=== PATIENT | male | born 1970 | race African-American/Black ===

== ENCOUNTER 2017-02-05 10:26 | Emergency (ER) | payer BC ==
--- NOTE | 2017-02-05 10:47 | EDM.PDOC ---
ED HPI GENERAL MEDICAL PROBLEM - General Chief Complaint: Upper Extremity Injury/Pain Stated Complaint: NECK/SHOULDER Time Seen by Provider: 02/05/17 10:36 Source of Information: Reports: Patient History Limitations: Reports: No Limitations - History of Present Illness INITIAL COMMENTS - FREE TEXT/NARRATIVE: HISTORY AND PHYSICAL: History of present illness: [Patient comes to the emergency room for evaluation of neck, left shoulder and left elbow pain. States that he fell off a 4 foot step ladder while he was working at home yesterday, landing on his left shoulder and his mid back. He experienced immediate pain to those areas that they would get better with ice and rest. He woke up this morning with worsening pain and stiffness. Reports a history of C4 surgery. No weakness to upper extremities. Denies numbness and tingling. No chest pain, SOA or difficulty breathing. ] Review of systems: As per history of present illness and below otherwise all systems reviewed and negative. Past medical history: As per history of present illness and as reviewed below otherwise noncontributory. Surgical history: As per history of present illness and as reviewed below otherwise noncontributory. Social history: No reported history of drug or alcohol abuse. Family history: As per history of present illness and as reviewed below otherwise noncontributory. Physical exam: HEENT: Atraumatic, normocephalic. No areas of scalp tenderness. No tenderness over c-spine. Negative axial loading. Lungs: Clear to auscultation, breath sounds equal bilaterally. Heart: S1S2, regular rate and rhythm. Extremities: Atraumatic in appearance. Tender with palpation of L shoulder and trapezius. Tender w/ palpation over the L elbow and forearm. Diminished ROM through the wrist, elbow and shoulder due to pain. Hand fisher terrapin strength is diminshed on the left due to pain. Neurovascular unremarkable. Neuro: Awake, alert, oriented. Motor and sensory unremarkable throughout. Exam nonfocal. Diagnostics: [c-spine xray, L elbow xray, L shoulder xray, L forearm xray] Therapeutics: [Toradol 60mg IM, Norflex 60mg IV] Impression: [L arm pain] Plan: [Discussed with patient that his xrays are normal, and show no abnormality. Recommend gentle ROM stretches, heat/ice, and follow up with a local PCP. He states that he is not allergic to acetaminophen only codeine. He is given Toradol and NOrflex in the ER, and recommended to alternate Tylenol w/ ibuprofen. Follow dosing guidelines on the bottles. He is in agreement w/ today' s plan. ] Definitive disposition and diagnosis as appropriate pending reevaluation and review of above. Left Elbow Pain Score (Numeric/FACES): 8 Left Shoulder Pain Score (Numeric/FACES): 6 Neck Pain Score (Numeric/FACES): 4 - Related Data Allergies Allergy/AdvReac Type Severity Reaction Status Date / Time acetaminophen Allergy Hives Verified 02/05/17 10:39 [From Tylenol-Codeine #3] codeine Allergy Hives Verified 02/05/17 10:39 [From Tylenol-Codeine #3] cyclobenzaprine AdvReac Dizziness Verified 02/05/17 10:39 [From Flexeril] gabapentin [From Neurontin] AdvReac Vomiting Verified 02/05/17 10:39 methocarbamol [From Robaxin] AdvReac Vomiting Verified 02/05/17 10:39 tramadol AdvReac Vomiting Verified 02/05/17 10:39 Home Meds: Home Meds . [No Known Home Meds] 02/05/17 [History] Review of Systems - Review of Systems Review Of Systems: ROS reveals no pertinent complaints other than HPI. Trauma Exam - Physical Exam Exam: See Below Course - Vital Signs Last Recorded V/S: Last Vital Signs Temp 98 F 02/05/17 12:46 Pulse 62 02/05/17 12:46 Resp 16 02/05/17 12:46 BP 136/76 02/05/17 12:46 Pulse Ox 98 02/05/17 12:46 - Orders/Labs/Meds Orders: Active Orders 24 hr Category Date Time Status C-Spine [Cervical Spine 2V or 3V] [CR] Stat Exams 02/05/17 10:50 Taken Elbow Min 3V Lt [CR] Stat Exams 02/05/17 10:37 Taken Forearm 2V Lt [CR] Stat Exams 02/05/17 11:57 Taken Shoulder Comp Lt [CR] Stat Exams 02/05/17 10:38 Taken Meds: Medications Discontinued Medications Generic Name Dose Route Start Last Admin Trade Name Freq PRN Reason Stop Dose Admin Ketorolac Tromethamine 60 mg 02/05/17 12:26 Toradol IM 05/14/17 12:27 ONETIME ONE Orphenadrine Citrate 60 mg 02/05/17 12:30 Norflex IM Q12H CHARLEI Departure - Departure Time of Disposition: 12:30 Disposition: Home, Self-Care 01 Condition: good Clinical Impression: Left arm pain - Discharge Information Instructions: Shoulder Pain Referrals: PCP,None [Primary Care Provider] - Forms: ED Department Discharge Additional Instructions: The following information is given to patients seen in the emergency department who are being discharged to home. This information is to outline your options for follow-up care. We provide all patients seen in our emergency department with a follow-up referral. The need for follow-up, as well as the timing and circumstances, are variable depending upon the specifics of your emergency department visit. If you don't have a primary care physician on staff, we will provide you with a referral. We always advise you to contact your personal physician following an emergency department visit to inform them of the circumstance of the visit and for follow-up with them and/or the need for any referrals to a consulting specialist. The emergency department will also refer you to a specialist when appropriate. This referral assures that you have the opportunity for follow-up care with a specialist. All of these measure are taken in an effort to provide you with optimal care, which includes your follow-up. Under all circumstances we always encourage you to contact your private physician who remains a resource for coordinating your care. When calling for follow-up care, please make the office aware that this follow-up is from your recent emergency room visit. If for any reason you are refused follow-up, please contact the [facility] emergency department at and asked to speak to the emergency department charge nurse. [facility] [address] [place] [id number] Followup with her local primary care provider at the clinic listed above in 48- 72 hours. You can alternate Tylenol and ibuprofen every 4-6 hours as needed for discomfort. Return to ER as needed as discussed. - My Orders Last 24 Hours: My Active Orders 02/05/17 10:37 Elbow Min 3V Lt [CR] Stat 02/05/17 10:38 Shoulder Comp Lt [CR] Stat 02/05/17 10:50 C-Spine [Cervical Spine 2V or 3V] [CR] Stat 02/05/17 11:57 Forearm 2V Lt [CR] Stat - Assessment/Plan Last 24 Hours: My Active Orders 02/05/17 10:37 Elbow Min 3V Lt [CR] Stat 02/05/17 10:38 Shoulder Comp Lt [CR] Stat 02/05/17 10:50 C-Spine [Cervical Spine 2V or 3V] [CR] Stat 02/05/17 11:57 Forearm 2V Lt [CR] Stat
[2017-02-05] MEDS ORDERED: Ketorolac 60 MG/2 ML SDV IM ONE (12:26)
--- NOTE | 2017-02-06 17:36 | CR ---
EXAM DATE: 02/05/17 PATIENT'S AGE: 46 Patient: SAI ZAMAN Facility: [place], [place] Site . Site : 1970 Study: XRay Shoulder Left [id number]/14/2017 11:02:24 AM Ordering Physician: Doctor Cifuentes Final Report: HISTORY: Fall. TECHNIQUE: Two views of the left shoulder. COMPARISON: No prior. FINDINGS: There is no acute fracture or dislocation. Glenohumeral joint space maintained. AC joint intact. Type 2 acromial morphology. No abnormality within the visualized left lung. IMPRESSION: No acute fracture or dislocation. Dictated by MD @ 02/05/2017 11:16:49 AM Dictated by: Thomas Iverson MD @ 02/05/2017 11:16:55 (Electronic Signature) Report Signed by Proxy. TORIE
--- NOTE | 2017-02-06 17:37 | CR ---
EXAM DATE: 02/05/17 PATIENT'S AGE: 46 Patient: SAI ZAMAN Facility: [place], [place] Site . Site : 1970 Study: XRay Spine Cervical [id number]/14/2017 11:04:53 AM Ordering Physician: Doctor Cifuentes Final Report: HISTORY: Fall. TECHNIQUE: Three views of the cervical spine. COMPARISON: No prior. FINDINGS: There is no acute cervical fracture. Cervical vertebral body height is maintained. Patient has previously undergone intervertebral disc replacement at the C6-C7 level. That hardware appears intact. Disc height otherwise maintained. No malalignment. Prevertebral soft tissues within normal limits. The dens appears intact. Normal articulation of lateral masses of C1 and C2. IMPRESSION: 1. No acute cervical fracture or malalignment. 2. Prior intervertebral disc replacement at C6-C7. That hardware is intact. Dictated by Thomas Iverson MD @ 02/05/2017 11:18:34 AM Dictated by: Thomas Iverson MD @ 02/05/2017 11:18:37 (Electronic Signature) Report Signed by Proxy. STON[facility] BROOK [facility]AMPT[facility] HOSPITALSaira
--- NOTE | 2017-02-06 17:38 | CR ---
EXAM DATE: 02/05/17 PATIENT'S AGE: 46 Patient: SAI ZAMAN Facility: [place], [place] Site . Site : 1970 Study: XRay Extremity Left [id number]/14/2017 11:10:16 AM Ordering Physician: Doctor Cifuentes Final Report: HISTORY: Fall. TECHNIQUE: Three views of the left elbow. COMPARISON: No prior. FINDINGS: There is no acute fracture or dislocation. Elbow joint space appears maintained. No definite posterior fat pad sign. Small focus of calcification or ossification within the distal triceps tendon. IMPRESSION: No acute fracture or malalignment. Dictated by Thomas Iverson MD @ 02/05/2017 11:20:12 AM Dictated by: Thomas Iverson MD @ 02/05/2017 11:20:18 (Electronic Signature) Report Signed by Proxy. TORIE
--- NOTE | 2017-02-06 17:39 | CR ---
EXAM DATE: 02/05/17 PATIENT'S AGE: 46 Patient: SAI ZAMAN Facility: [place], [place] Site . Site : 1970 Study: XRay Extremity Left [id number]/14/2017 12:06:06 PM Ordering Physician: Doctor Cifuentes Final Report: HISTORY: Left forearm pain. TECHNIQUE: Two views of the left forearm. COMPARISON: No prior. FINDINGS: No radial or ulnar fracture. No radiopaque foreign body or soft tissue gas. IMPRESSION: No fracture. Dictated by Thomas Iverson MD @ 02/05/2017 12:16:51 PM Dictated by: Thomas Iverson MD @ 02/05/2017 12:16:55 (Electronic Signature) Report Signed by Proxy. TORIE
== END 2017-02-05 12:44 | disposition home or self-care (01) ==
LOC: MW.ED 10:26
DX: M79.632 Pain in left forearm (principal); M25.512 Pain in left shoulder; M25.522 Pain in left elbow; Z88.6 Allergy status to analgesic agent; Z88.5 Allergy status to narcotic agent; Z88.8 Allergy status to other drugs, medicaments and biological substances; W11.XXXA Fall on and from ladder, initial encounter; Y92.009 Unspecified place in unspecified non-institutional (private) residence as the place of occurrence of the external cause; Y99.0 Civilian activity done for income or pay
CPT/HCPCS: 72040; 72040-26; 73030-26-LT; 73030-LT; 73080-26-LT; 73080-LT; 73090-26-LT; 73090-LT; 99283; 99284